=== PATIENT | female | born 1995 | race African-American/Black ===

== ENCOUNTER 2022-02-25 03:26 | Emergency (ER) | payer OTHER ==
[~2022-02-25] VITALS: Ht 170.2 cm; Wt 90.0 kg
[2022-02-25 03:30] VITALS: BP 142/78
[2022-02-25] MEDS ORDERED: BACITRACIN ZINC OINT UDPKT TOP ONE (04:30)
[2022-02-25] MEDS ORDERED: TETANUS, DIPHTHERIA, PERTUSSIS VAC/PF 0.5ML (>10YR OLD) IM ONE (04:30)
[2022-02-25] MEDS ORDERED: ACETAMINOPHEN WITH CODEINE 300/30MG TABLET PO ONE (05:00)
[2022-02-25] MEDS ORDERED: BO1 TP (05:29)
== END 2022-02-25 05:37 | disposition home or self-care (01) ==
LOC: ER 03:26
DX: R68.84 Jaw pain (principal); S50.311A Abrasion of right elbow, initial encounter; S90.812A Abrasion, left foot, initial encounter; Y04.0XXA Assault by unarmed brawl or fight, initial encounter; Y93.89 Activity, other specified; Y92.89 Other specified places as the place of occurrence of the external cause; Y99.8 Other external cause status
CPT/HCPCS: 70486; 90471; 90715; 99284

== ENCOUNTER 2022-06-08 16:23 | Emergency (ER) | payer OTHER ==
[~2022-06-08] VITALS: Ht 170.2 cm; Wt 105.0 kg
[~2022-06-08 16:23] MED LIST: BO1 TP
[2022-06-08 16:25] VITALS: BP 151/65
== END 2022-06-08 19:30 | disposition left against medical advice (07) ==
LOC: ER 16:23
DX: Z53.21 Procedure and treatment not carried out due to patient leaving prior to being seen by health care provider (principal)

== ENCOUNTER 2022-10-14 23:15 | Emergency (ER) | payer MEDICAID, OTHER ==
[~2022-10-14] VITALS: Ht 170.2 cm; Wt 98.0 kg
[2022-10-15 00:40] VITALS: BP 130/53
[2022-10-15] MEDS ORDERED: DEXAMETHASONE 10 MG/ML VIAL IV ONE (00:45)
[2022-10-15] MEDS ORDERED: ACETAMINOPHEN 325MG TABLET PO ONE (00:45)
[2022-10-15] MEDS ORDERED: TOPUD MT (01:33)
== END 2022-10-15 01:46 | disposition home or self-care (01) ==
LOC: ER 23:15
DX: R05.9 Cough, unspecified (principal); R09.81 Nasal congestion; R07.0 Pain in throat; Z20.822 Contact with and (suspected) exposure to COVID-19
CPT/HCPCS: 87426; 96374; 99283; C9803; J1100; Z7610

== ENCOUNTER 2023-12-20 00:09 | Emergency (ER) | payer MEDICAID, OTHER ==
[~2023-12-20] VITALS: Ht 170.2 cm; Wt 92.0 kg
[~2023-12-20 00:09] MED LIST changes: +TOPUD MT
[2023-12-20 00:14] VITALS: BP 132/76; RESP 18; TEMP 98; O2SAT 100
[2023-12-20 00:20] VITALS: PULSE 97
[2023-12-20] MEDS ORDERED: ACETAMINOPHEN 325MG TABLET PO ONE (04:00)
[2023-12-20] MEDS ORDERED: AMOX1TAB16 PO (07:56)
[2023-12-20] MEDS ORDERED: TOPUD PO (07:56)
== END 2023-12-20 04:45 | disposition left against medical advice (07) ==
LOC: ER 00:57
DX: J02.9 Acute pharyngitis, unspecified (principal); R51.9 Headache, unspecified; R50.9 Fever, unspecified; Z53.21 Procedure and treatment not carried out due to patient leaving prior to being seen by health care provider
CPT/HCPCS: 99281

== ENCOUNTER 2023-12-20 06:34 | Emergency (ER) | payer MEDICAID, OTHER ==
[~2023-12-20] VITALS: Ht 172.7 cm; Wt 91.0 kg
[2023-12-20 06:54] VITALS: O2SAT 100
[2023-12-20] MEDS ORDERED: TOPUD PO (07:56)
[2023-12-20] MEDS ORDERED: AMOX1TAB16 PO (07:56)
[2023-12-20] MEDS: ACETAMINOPHEN 325MG TABLET PO ONE (08:03)
[2023-12-20 08:50] VITALS: BP 133/82; PULSE 73; RESP 18; TEMP 98.8
== END 2023-12-20 09:04 | disposition home or self-care (01) ==
LOC: ER 06:49
DX: J02.9 Acute pharyngitis, unspecified (principal)
CPT/HCPCS: 87070; 87430; 99283

== ENCOUNTER 2024-05-23 13:27 | Emergency (ER) | payer OTHER ==
[~2024-05-23] VITALS: Ht 165.1 cm; Wt 70.0 kg
[~2024-05-23 13:27] MED LIST changes: +AMOX1TAB16 PO; +TOPUD PO
[2024-05-23 13:29] VITALS: O2SAT 98
[2024-05-23 15:08] LABS: BASOPHILS % 0.5 % (0.0-2.0); EOSINOPHILS % 2.5 % (0.0-5.0); HEMATOCRIT. 39.5 % (36.0-48.0); HEMOGLOBIN. 12.5 g/dL (12.0-16.0); LYMPHOCYTES % 25.8 % (20.0-50.0); MEAN CORPUSCULAR HEMOGLOBIN 28.3 pg (28.0-32.0); MEAN CORPUSCULAR HGB CONC 31.7 g/dL (31.0-37.0); MEAN CORPUSCULAR VOLUME 89.3 fL (81.0-99.0); MEAN PLATELET VOLUME 7.7 fl (7.4-10.4); MONOCYTES % 10.1 % (2.0-8.0); NEUTROPHILS % 61.1 % (40.0-76.0); PLATELET 328 x1000/uL (130-400); RED BLOOD CELL COUNT 4.42 mill/uL (4.2-5.4); WHITE BLOOD COUNT 7.5 x1000/uL (4.5-11.0)
[2024-05-23 15:15] LABS: CHLORIDE 110 mEq/L (98-107); POTASSIUM 3.9 mEq/L (3.5-5.1); SODIUM 142 mEq/L (136-145)
[2024-05-23 15:16] LABS: CARBON DIOXIDE 26 mEq/L (21-32)
[2024-05-23 15:21] LABS: CREATININE 0.7 mg/dL (0.6-1.0); GLUCOSE 97 mg/dL (70-105); UREA NITROGEN BLOOD 8 mg/dL (9-23)
[2024-05-23 15:22] LABS: ACETAMINOPHEN < 2 ug/mL (10-30); AMMONIA 79 uMol/L (<32); ETHANOL BLOOD < 10 mg/dL (<10)
[2024-05-23 15:23] LABS: CREATINE KINASE 251 IU/L (34-145)
[2024-05-23 15:26] LABS: HCG SCREEN NEGATIVE
[2024-05-23] MEDS: NALOXONE HCL 0.4MG/ML 1ML VIAL IV ONE (16:30)
[2024-05-23] MEDS: LACTULOSE 20G/30ML UDC PO ONE (16:34)
[2024-05-23 21:16] VITALS: BP 112/56; PULSE 57; RESP 13; TEMP 37.00296; O2SAT 98
== END 2024-05-23 22:00 | disposition short-term general hospital (02) ==
LOC: ER 13:27 → CANBEDREQ 17:35 → ER 22:00
DX: G93.40 Encephalopathy, unspecified (principal); K76.82 Hepatic encephalopathy; Z79.899 Other long term (current) drug therapy
CPT/HCPCS: 80048; 80307; 80329; 80320; 82140; 82550; 82962; 84703; 85025; 36415; 70450; 96374; 99285; J2310; Z7610 ×2; G0480